=== PATIENT | female | born 1940 | race Caucasian/White ===

== ENCOUNTER 2017-01-10 02:19 | Emergency (ER) | payer MEDICARE ==
[~2017-01-10] VITALS: Ht 162.6 cm; Wt 80.4 kg
[2017-01-10] MEDS ORDERED: LASIX 40 MG40 MG/TAB PO (02:36)
[2017-01-10] MEDS ORDERED: LIPITOR10 M1 PO (02:37)
[2017-01-10] MEDS ORDERED: ALPRAZOLAM1 MG PO (02:37)
[2017-01-10] MEDS ORDERED: JANUMET1 TA1 PO (02:38)
[2017-01-10] MEDS ORDERED: K-DUR/KLOR-CON20 MEQ PO (02:39)
[2017-01-10] MEDS ORDERED: LOSARTAN POT50 MG PO (02:40)
[2017-01-10] MEDS ORDERED: PROPRANOLOL HCL80 M1 PO (02:40)
[2017-01-10] MEDS ORDERED: INDAPAMIDE2.5 MG PO (02:41)
[2017-01-10] MEDS ORDERED: HYDROXYCHLOR200 M1 PO (02:41)
[2017-01-10] MEDS ORDERED: CYMBALTA60 MG PO (02:42)
[2017-01-10] MEDS ORDERED: GEODON80 MG PO (02:43)
[2017-01-10] MEDS ORDERED: SYNTHROID88 MCG PO (02:43)
[2017-01-10] MEDS ORDERED: GLIMEPIRIDE2 MG PO (02:44)
[2017-01-10] MEDS ORDERED: PANTOPRAZOLE SO40 MG PO (02:44)
[2017-01-10] MEDS ORDERED: CLONAZEPAM0.5 MG PO (02:45)
[2017-01-10] MEDS ORDERED: ASPIRIN ENTERIC81 MG PO (02:46)
[2017-01-10 03:19] LABS: HEMATOCRIT 36.4 % (37.0-47.0); HEMOGLOBIN 12.5 g/dl (12.0-16.0); IMMATURE GRANULOCYTES 0.4 % (0.0-1.0); MEAN CELL VOLUME 84.1 fL CALC (80.0-100.0); MEAN CORPUSCULAR HGB 28.9 pG CALC (26.0-32.0); MEAN CORPUSCULAR HGB CONC 34.3 g/L CALC (32.0-36.0); NEUT# 6.29 thou/uL (2.00-7.15); RED BLOOD COUNT 4.33 mill/uL (4.20-5.60); RED CELL DISTRI WIDTH 13.2 % (11.5-15.5)
[2017-01-10 03:40] LABS: ALBUMIN 4.7 g/dL (3.2-5.0); ALKALINE PHOSPHATASE 62 u/l (38-126); ANION GAP 21 (6-22 (CALC)); BILIRUBIN, TOTAL 0.5 mg/dL (0.0-1.4); BUN 24 mg/dL (8-23); BUN/CREATININE RATIO 12 (12-20 (CALC)); CALCIUM 10.1 mg/dL (8.4-10.2); CARBON DIOXIDE 28 mmol/l (22-30); CHLORIDE 95 mmol/l (95-108); CREATININE 2.1 mg/dL (0.5-1.0); GFR 23 ML/MIN (>=60 (CALC)); GFR FOR AFR.AMER. 28 ML/MIN (>=60 (CALC)); GLUCOSE 114 mg/dL (82-115); POTASSIUM 3.9 mmol/l (3.5-5.1); SGOT/AST 27 u/l (9-36); SGPT/ALT 31 u/l (11-66); SODIUM 140 mmol/l (137-146); TOTAL PROTEIN 8.2 g/dL (6.3-8.2)
[2017-01-10 03:52] LABS: MYOGLOBIN 222 ng/mL (0 - 62)
[2017-01-10] MEDS ORDERED: ANTIVERT PO (04:17)
[2017-01-10] MEDS ORDERED: ZOFRAN ODT4 MG PO (04:17)
[2017-01-10 04:30] VITALS: BP 161/65
== END 2017-01-10 04:42 | disposition home or self-care (01) ==
LOC: ED 02:19
PROVIDERS: Emergency Medicine
DX: R42 Dizziness and giddiness (principal); E11.9 Type 2 diabetes mellitus without complications; I10 Essential (primary) hypertension; J45.990 Exercise induced bronchospasm; E03.9 Hypothyroidism, unspecified; K21.9 Gastro-esophageal reflux disease without esophagitis; Z95.5 Presence of coronary angioplasty implant and graft; R94.31 Abnormal electrocardiogram [ECG] [EKG]

== ENCOUNTER 2017-09-16 10:53 | Emergency (ER) | payer MEDICARE ==
[~2017-09-16] VITALS: Ht 162.6 cm; Wt 80.0 kg
[~2017-09-16 10:53] MED LIST: ALPRAZOLAM1 MG PO; ANTIVERT PO; ASPIRIN ENTERIC81 MG PO; CLONAZEPAM0.5 MG PO; CYMBALTA60 MG PO; GEODON80 MG PO; GLIMEPIRIDE2 MG PO; HYDROXYCHLOR200 M1 PO; INDAPAMIDE2.5 MG PO; JANUMET1 TA1 PO; K-DUR/KLOR-CON20 MEQ PO; LASIX 40 MG40 MG/TAB PO; LIPITOR10 M1 PO; LOSARTAN POT50 MG PO; PANTOPRAZOLE SO40 MG PO; PROPRANOLOL HCL80 M1 PO; SYNTHROID88 MCG PO; ZOFRAN ODT4 MG PO
[2017-09-16] MEDS ORDERED: PERCOCET 5/325M1 TAB PO (13:24)
[2017-09-16 14:08] VITALS: BP 121/71
== END 2017-09-16 14:13 | disposition home or self-care (01) ==
LOC: ED 10:53
DX: R07.81 Pleurodynia (principal); R94.31 Abnormal electrocardiogram [ECG] [EKG]; R06.02 Shortness of breath; X50.0XXA Overexertion from strenuous movement or load, initial encounter; Y93.89 Activity, other specified; Y92.009 Unspecified place in unspecified non-institutional (private) residence as the place of occurrence of the external cause

== ENCOUNTER → 2018-11-07 | Outpatient (REF) | payer MEDICARE ==
[~2018-11-07] MED LIST changes: +B-125000 MCG SL; +COENZYME Q10200 M2 PO; +JANUVIA50 MG PO; +MAGNESIUM500 M3 PO; +PERCOCET 5/325M1 TAB PO; +PROAIR HFA IN; +PROLIA60 MG/ML SC; +PROPRANOLOL HCL60 M1 PO; -PROPRANOLOL HCL80 M1 PO; +SYNTHROID125 MCG PO; -SYNTHROID88 MCG PO; +VITAMIN D-32000 UNI1 PO; +VITAMIN K2100 MCG PO
[2018-11-07 10:49] LABS: CREATININE 1.3 mg/dL (0.5-1.0); POTASSIUM 4.2 mmol/l (3.5-5.1)
== END | disposition home or self-care (01) ==
LOC: LAB 09:56
PROVIDERS: ATTEND Internal Medicine
DX: N18.3 Chronic kidney disease, stage 3 (moderate) (principal)